=== PATIENT | male | born 1995 | race Two or more races ===

== ENCOUNTER 2025-01-02 19:34 | Emergency (ER) | payer MEDICAID ==
[~2025-01-02] VITALS: Ht 167.6 cm; Wt 63.5 kg
[2025-01-02 19:41] VITALS: BP 132/81; PULSE 80; RESP 18; TEMP 98.1; O2SAT 98
[2025-01-02] MEDS ORDERED: CEPH-558 PO (21:37)
[2025-01-02] MEDS ORDERED: DOXY-354 PO (21:37)
[2025-01-02] MEDS ORDERED: ACET-66 PO (21:37)
[2025-01-02] MEDS ORDERED: IBUP-1554 PO (21:37)
[2025-01-02] MEDS: ACETAMINOPHEN 500 MG TABLET PO ONE (22:11)
[2025-01-02] MEDS: IBUPROFEN 600 MG TABLET PO ONE (22:12)
[2025-01-02] MEDS: CEPHALEXIN MONOHYDRATE 500 MG CAPSULE PO ONE (22:12)
[2025-01-02] MEDS: DOXYCYCLINE HYCLATE 100 MG TABLET PO ONE (22:12)
[2025-01-02] MEDS: PERTUSS(ACELL),DIPH,TET/PF 0.5 ML SYRINGE [ADULT] IM. ONE (22:14)
== END 2025-01-02 22:30 | disposition home or self-care (01) ==
LOC: EMS 19:34
DX: L03.115 Cellulitis of right lower limb (principal); Z79.899 Other long term (current) drug therapy; W57.XXXA Bitten or stung by nonvenomous insect and other nonvenomous arthropods, initial encounter
CPT/HCPCS: 90471; 90715; 99284